=== PATIENT | female | born 1935 | race Two or more races ===

== ENCOUNTER 2019-02-21 07:28 | Day surgery (SDC) | payer OTHER | END 2019-02-21 13:15 | disposition home or self-care (01) | LOC: AMB-ENDOS 07:28 | DX: D12.4 Benign neoplasm of descending colon (principal); K57.30 Diverticulosis of large intestine without perforation or abscess without bleeding; K64.8 Other hemorrhoids ==

== ENCOUNTER 2019-03-07 08:10 | Inpatient (IN) | payer OTHER ==
[~2019-03-07] VITALS: Ht 162.6 cm; Wt 56.7 kg
[~2019-03-07 08:10] MED LIST: DIGOX PO; ELIQUIS2.5 MG PO; EVISTA60 MG PO; PLETAL PO; TOPROL XL25 M1 PO; VITAMIN AND MI1 EACH PO
[2019-03-08] MEDS ORDERED: LANOXIN125 MCG PO (08:00)
[2019-03-08] MEDS ORDERED: CILOSTAZOL50 MG PO (08:02)
== END 2019-03-09 19:10 | disposition home or self-care (01) | DRG 331 ==
LOC: CIR.AMB 08:10 → SURG 19:45
PROVIDERS: ADMIT Colon & Rectal Surgery
PROC: 07TB4ZZ Resection of Mesenteric Lymphatic, Percutaneous Endoscopic Approach (ICD-10-PCS; 2019-03-07)
PROC: 0DTF4ZZ Resection of Right Large Intestine, Percutaneous Endoscopic Approach (ICD-10-PCS; principal; 2019-03-07 15:30)
DX: C18.4 Malignant neoplasm of transverse colon (principal); I48.0 Paroxysmal atrial fibrillation; E78.49 Other hyperlipidemia; Z95.0 Presence of cardiac pacemaker; R59.0 Localized enlarged lymph nodes